=== PATIENT | female | born 1990 | race Caucasian/White ===

== ENCOUNTER → 2016-11-05 | Outpatient (CLI) | payer BC ==
[2016-11-05 18:05] LABS: HEMATOCRIT 40.2 % (37-47); MEAN CELL VOLUME 93.3 fL (80-100); MEAN CORPUSCULAR HEMOGLOBIN 31.8 pg (25-34); MEAN CORPUSCULAR HGB CONC 34.1 g/dl (32-36); MEAN PLATELET VOLUME 10.5 fL (7.4-10.4); PLATELET COUNT 244 K/uL (130-400); RED BLOOD COUNT 4.31 M/uL (4.2-5.4); WHITE BLOOD COUNT 6.66 K/uL (4.8-10.8)
== END | disposition home or self-care (01) ==
LOC: C.LAB 17:37
PROVIDERS: ATTEND Obstetrics & Gynecology
DX: R53.83 Other fatigue (principal); Z20.2 Contact with and (suspected) exposure to infections with a predominantly sexual mode of transmission; Z01.419 Encounter for gynecological examination (general) (routine) without abnormal findings

== ENCOUNTER → 2016-11-05 | Outpatient (CLI) | payer BC | END | disposition home or self-care (01) | LOC: C.PAPS 13:35 | PROVIDERS: ATTEND Obstetrics & Gynecology | DX: Z01.419 Encounter for gynecological examination (general) (routine) without abnormal findings (principal) ==

== ENCOUNTER → 2016-11-05 | Outpatient (CLI) | payer BC ==
[2016-11-10 03:39] LABS: CHLAMYDIA TRACH RNA*** NOT DETECTED (NOT DETECTED); GC (NEIS GONORRHOEAE)RNA** NOT DETECTED (NOT DETECTED); TRICHOMONAS VAGINALIS RNA** NOT DETECTED (NOT DETECTED)
== END | disposition home or self-care (01) ==
LOC: C.LABSPEC 14:21
PROVIDERS: ATTEND Obstetrics & Gynecology
DX: Z20.2 Contact with and (suspected) exposure to infections with a predominantly sexual mode of transmission (principal)

== ENCOUNTER → 2017-05-06 | Outpatient (CLI) | payer OTHER ==
[2017-05-06 12:45] LABS: CHOLESTEROL/HDL RATIO 2.9
== END | disposition home or self-care (01) ==
LOC: C.LABBFT 10:29
PROVIDERS: ATTEND Nurse Practitioner
DX: Z00.00 Encounter for general adult medical examination without abnormal findings (principal)

== ENCOUNTER 2017-10-18 18:33 | Emergency (ER) | payer OTHER ==
[~2017-10-18] VITALS: Ht 166.4 cm; Wt 78.0 kg
[2017-10-18 18:36] VITALS: Ht 166.4 cm; Wt 78.0 kg
--- NOTE | 2017-10-18 19:08 | DIAGNOSTIC IMAGING REPORT ---
R WRIST W/NAVICULAR MIN 3 VIEWS CLINICAL HISTORY: Right wrist pain status post trauma COMPARISON: None. DISCUSSION: There is a nondisplaced transverse fracture through the distal radial metaphysis. No ulnar fractures are visualized. There is no dislocation. There is no evidence for soft tissue swelling. IMPRESSION: Acute nondisplaced distal radial fracture Electronically signed by: Regino Dunn M.D. 10/18/2017 7:06 PM Dictated Date/Time: 10/18/2017 7:06 PM
[2017-10-18] MEDS ORDERED: IBUPROFEN 600 MG TAB PO STA (19:12)
--- NOTE | 2017-10-18 19:14 | EMERGENCY ROOM VISIT NOTE ---
History First contact with patient: 18:41 Chief Complaint: WRIST PAIN Stated Complaint: PAIN IN R WRIST History of Present Illness The patient is a 27 year old female who presents to the Emergency Room via private vehicle with complaints of "pain and right wrist". The patient states that she was snowboarding earlier today at [employer], when she fell and injured her right wrist. She rates the right wrist pain as a 6/10. She is right- handed. She denies any other injuries. She notes no numbness or tingling in the distal extremity. She had 1000 mg of ibuprofen around 2 PM. Review of Systems A complete 6-point Review of Systems was discussed with the patient, with pertinent positives and negatives listed in the History of Present Illness. All remaining Review of Systems questions can be considered negative unless otherwise specified. Past Medical/Surgical History Non contributory Family History Non contributory Social History Smoking Status: Current Every Day Smoker Pt. lives locally Current/Historical Medications Scheduled Doxycycline Monohydrate (Monodox), 100 MG PO BID Scheduled PRN Hydrocodone/Acetaminophen 5MG/325MG (Beaufort 5MG/325MG), 1-2 TABLET PO Q6 PRN for Pain Physical Exam Vital Signs Date Time Temp Pulse Resp B/P (MAP) Pulse Ox O2 Delivery O2 Flow Rate FiO2 10/18/17 19:47 84 18 119/77 100 Room Air 10/18/17 18:36 Room Air Physical Exam VITAL SIGNS - Vital signs and nursing notes were reviewed. Stable. GENERAL - 27-year-old female appearing her stated age who is in no acute distress. Communicates well with provider and answers questions appropriately. SKIN - Without rashes. Mild edema noted over the dorsal aspect of the right lateral wrist. EXTREMITIES - pinpoint tenderness overlying the right distal radial region. There is no distal or proximal tenderness. No deformity noted. No other hand or forearm tenderness noted. She is neurovascularly intact in this region. Medical Decision & Procedures ER Provider Diagnostic Interpretation: R WRIST W/NAVICULAR MIN 3 VIEWS CLINICAL HISTORY: Right wrist pain status post trauma COMPARISON: None. DISCUSSION: There is a nondisplaced transverse fracture through the distal radial metaphysis. No ulnar fractures are visualized. There is no dislocation. There is no evidence for soft tissue swelling. IMPRESSION: Acute nondisplaced distal radial fracture Electronically signed by: Regino Dunn M.D. 10/18/2017 7:06 PM Dictated Date/Time: 10/18/2017 7:06 PM Medications Administered Medications (Trade) Dose Ordered Sig/Bretnon Route Start Time Stop Time Status Last Admin Dose Admin Ibuprofen (Motrin Tab) 600 mg NOW STAT PO 10/18/17 19:12 10/18/17 19:14 DC 10/18/17 19:18 600 MG Acetaminophen/ Hydrocodone Bitart (Beaufort 5/325mg Home Pack) 1 [facility] UD STAT PO 10/18/17 19:27 10/18/17 19:28 DC 10/18/17 19:43 1 [facility] Medical Decision Patient was seen and evaluated as above. She presents to us today status post fall. She is nontoxic in appearance, well-appearing and is hemodynamically stable. X-ray reveals a nondisplaced right distal radial fracture. She appears stable for outpatient management. She was given 600 mg of ibuprofen here for pain per request. She declined narcotic pain medication while here. She was fitted with an Ortho-Glass volar splint with good fit. Neurovascularly intact post-splinting. She was also given an arm sling. She is to follow with orthopedics. She is to call them tomorrow. She'll be given a short prescription of Beaufort for her pain. She was educated upon management, educated upon worrisome symptoms which to return, had questions answered prior to discharge, and was discharged home in good condition. No red flags identified and the [place] drug monitoring system. In the evaluation and treatment of this patient, the following differential diagnoses were considered: Wrist Sprain, Wrist Fracture, Wrist Dislocation, Scapholunate Dissociation, Carpal Fracture, Metacarpal Fracture, Radial Styloid Process Fracture, Ulnar Styloid Process Fracture, or Carpal Tunnel Syndrome. Impression Primary Impression: Radius distal fracture Departure Information Dispostion Home / Self-Care Condition GOOD Prescriptions Hydrocodone/Acetaminophen 5MG/325MG (Beaufort 5MG/325MG) Tab 1-2 TABLET PO Q6 Y for Pain, #20 TAB For Initial Treatment Prov: Amarjit Barraza PA-C 10/18/17 Referrals No Doctor, Assigned (PCP) Gary Ortega D.O. Patient Instructions My [facility] Additional Instructions You have been treated in the Emergency Department for Wrist Pain. You have been prescribed NORCO to be used for pain control. This is a narcotic medication. You cannot drive or consume alcohol while on this medicine. This medicine should only be used for pain that cannot be controlled with over-the- counter pain medicines. Please do not take with other sources of Tylenol/ acetaminophen. For pain control, you can use the following [id number] medicines: - Regular strength (325mg/tab) Tylenol (acetaminophen) 2 tabs every 4-6 hours as needed. Do not exceed 12 tablets in a 24 hour period. Avoid taking more than 3 grams (3000 mg) of Tylenol per day. This includes any other sources of acetaminophen you may take on a regular basis. - Regular strength (200 mg/tab) Advil (ibuprofen) 1-2 tabs every 4-6 hours as needed. Do not exceed a dose of 3200 mg per day. Max 800mg every 8 hours OR 600mg every 6hours OR 400mg every 4 hours If this is a recent injury (<24 hrs), ice can be applied to the area of pain for the first 3 days to help decrease pain and inflammation. You have been provided the number for an Orthopaedic Surgeon. You should call this number as soon as possible to establish a follow-up visit from today's Emergency Department visit. Keep the brace/splint in place until evaluated by Orthopedics. Return to the Emergency Department if your current symptoms worsen despite treatment course outlined above, or if you develop any of the following symptoms : intractable pain despite aforementioned treatment course or new onset of numbness or tingling of the fingers.
[2017-10-18] MEDS ORDERED: NORCO 5/325MG HOME PACK PO STA (19:27)
[2017-10-18] MEDS ORDERED: DOXY100C76 PO (19:29)
[2017-10-18] MEDS ORDERED: HYDR-5688 PO (19:31)
[2017-10-18 19:47] VITALS: BP 119/77; PULSE 84; O2SAT 100
== END 2017-10-18 19:50 | disposition home or self-care (01) ==
LOC: C.EDB 18:35 → C.EDD 19:50
DX: S52.501A Unspecified fracture of the lower end of right radius, initial encounter for closed fracture (principal); V00.311A Fall from snowboard, initial encounter; Y93.23 Activity, snow (alpine) (downhill) skiing, snowboarding, sledding, tobogganing and snow tubing; Y92.838 Other recreation area as the place of occurrence of the external cause; F17.200 Nicotine dependence, unspecified, uncomplicated

== ENCOUNTER → 2018-05-29 | Outpatient (CLI) | payer OTHER ==
[~2018-05-29] MED LIST: DOXY100C76 PO
== END | disposition home or self-care (01) ==
LOC: C.LAB1850 14:50
PROVIDERS: ATTEND Obstetrics & Gynecology
DX: Z34.02 Encounter for supervision of normal first pregnancy, second trimester (principal)

== ENCOUNTER 2021-01-27 22:50 | Inpatient (IN) ==
[2021-01-27] MEDS ORDERED: LACTATED RINGER'S 1,000 ML IV PRN (23:16)
[2021-01-27] MEDS ORDERED: ceFAZolin 1000MG 1,000 MG/7.5 ML SYR IV PRN (23:16)
[2021-01-27] MEDS ORDERED: OXYTOCIN 30 UNITS/500 ML BAG IV PRN (23:16)
[2021-01-27] MEDS ORDERED: fentaNYL citrate 100 MCG/2 ML VIAL ONE (23:26)
[2021-01-27] MEDS ORDERED: SODIUM CHLORIDE 0.9% INJ 10 ML VIAL ONE (23:26)
[2021-01-27] MEDS ORDERED: ePHEDrine sulfate 50 MG/ML AMP ONE (23:26)
[2021-01-27] MEDS ORDERED: BUPIVACAINE 0.25% 30 ML VIAL ONE (23:26)
[2021-01-27] MEDS ORDERED: fentaNYL 2MCG/ML ROPIVACAINE 1.25MG/ML 100 ML BAG EPI ONE (23:27)
[2021-01-27 23:40] LABS: Hematocrit (blood only) 35.4 % (37-47); Hemoglobin 11.8 g/dL (12.0-16.0); Mean Corpuscular Hemoglobin 29.3 pg (25-34); Mean Corpuscular Hgb Conc 33.3 g/dL (32-36); Mean Corpuscular Volume 87.8 fL (80-100); Mean Platelet Volume 10.7 fL (7.4-10.4); Platelet Count 208 K/uL (130-400); RDW Standard Deviation 45.3 fL (36.4-46.3); Red Blood Count 4.03 M/uL (4.2-5.4); White Blood Count 15.81 K/uL (4.8-10.8)
--- NOTE | 2021-01-28 00:15 | History & Physical Report ---
Date of Service January 28, 2021 Assessment & Plan (1) Encounter for supervision of normal in multigravida, antepartum: Admit to L&D. EFM/toco. Labs. IV. Ancef for GBS prophylaxis due to penicillin allergy (hives). Anticipate . Admission and Anticipated Discharge Date Admission Date: January 27, 2021 History of Present Illness Chief Complaint: labor Primary Care Provider: VINAYAK Moon 30yo @ 40 0/7, presents with regular contractions. + movement, no vaginal bleeding, no leaking fluid. GBS+ Allergies Allergy/AdvReac Type Severity Reaction Status Date / Time Penicillins Allergy Unknown Hives Verified 01/22/21 15:32 AMOXICILLIN Allergy Unknown Hives Uncoded 01/08/21 15:43 Home Medications Medication Instructions Recorded Confirmed Type prenat.vits,sakshi,bze-nvup-sphva 1 tab PO DAILY 06/13/20 01/22/21 History promethazine 12.5 mg tablet 12.5 mg PO Q6H PRN #30 tab 07/14/20 01/22/21 Rx Patient History Medical History (Updated 01/05/21 @ 07:22 by Tika Cheatham MD) Encounter for anatomic survey H/O esophageal reflux History of fracture of nasal bone closed treatment of nasal bone fracture History of PCOS Migraine headache Rib pain on left side Surgical History (Updated 05/04/19 @ 13:11 by Kev Isaacs) History of colposcopy with loop electrode excision of the cervix History of oral surgery tooth extraction Family History (Updated 06/24/20 @ 14:22 by Romy Cho MD) Grandmother Hypertension Myocardial infarction Father Pure hypercholesterolemia Kidney stones Mother Myocardial infarction Hypercholesteremia Heart defect Social History (Updated 06/13/20 @ 14:35 by Sushila Hart) Smoking Status: Former smoker Second Hand Exposure: No; Do You Dip or Chew Tobacco: No; Tobacco Cessation Education Requested by Patient: No Hx Alcohol Use: No Hx Substance Use: No Preferred Language: Nigerian Communication Ability: Effective Lab Manager Required: No Beliefs That Will Affect Care: None marital status: marital status details: Ed ([phone] Current Living Situation: Spouse and Family Current Living Situation Comment: and daughter current occupational status: employed 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 Other Information That Helps Us Care for You: No Feels Safe at Home: Yes Safety Concerns: Feels Safe At This Time Assistive Devices: None Review of Systems All systems reviewed & are unremarkable except as noted in HPI & below Physical Exam Physical Exam: Cervix 6/100/-1 bulging membranes per RN Constitutional: WD/WN, vitals as above Respiratory: normal respiratory effort, lungs clear to auscultation no respiratory distress Cardiovascular: Rate/Rhythm: regular rate and regular rhythm Gastrointestinal (Abdomen): Inspection/Auscultation: abdomen normal to inspection Percussion/Palpation: abdomen soft; abdomen nontender Gravid. No s/s chorio or abruption. Skin: no rashes, warm and dry Psychiatric: A+Ox3, euthymic affect Results & Data ([facility]) Vital Signs (Past 12 Hours) Vital Signs Temp Pulse Resp BP Pulse Ox 01/28/21 00:10 86 100 01/28/21 00:05 77 100 01/27/21 23:26 36.7 C 18 01/27/21 23:04 87 143/68 H Monitoring External Monitor Cat 1 Tocodynamometer Q 2-3 Coding Level of Care Code None Diagnoses Encounter for supervision of normal in multigravida, antepartum Z34.80
[2021-01-28] MEDS ORDERED: NALOXONE HCL 0.4 MG/1 ML VIAL/CARP IV PRN (00:32)
[2021-01-28] MEDS ORDERED: ONDANSETRON INJ 2 MG/ML 2 ML VIAL IV PRN (00:32)
[2021-01-28] MEDS ORDERED: ePHEDrine sulfate 50 MG/ML AMP IV PRN (00:32)
[2021-01-28] MEDS ORDERED: NALOXONE HCL 1 MG in SODIUM CHLORIDE 0.9% 1000ML 1,000 ML IV PRN (00:32)
[2021-01-28] MEDS ORDERED: PROMETHAZINE HCL 6.25 MG in SODIUM CHLORIDE 0.9% 50 ML IV PRN (00:32)
[2021-01-28] MEDS ORDERED: diphenhydrAMINE 50 MG/ML VIAL IV PRN (00:32)
[2021-01-28] MEDS ORDERED: fentaNYL 2MCG/ML ROPIVACAINE 1.25MG/ML 100 ML BAG EPI PRN (00:32)
--- NOTE | 2021-01-28 00:35 | Anesthesiology Consultation ---
Date of Service January 28, 2021 Assessment & Plan (1) Encounter for pre-operative examination: Chart Review Chart Review: Acceptable Risk for Surgery and Patient NOT seen in Pre Admission Testing Consults Requested none ASA ASA2 Proposed Anesthesia Anesthesia Type: Labor Epidural Risk / Benefits Reviewed With: PT / POA / Parent / Guardian, Accepts Plan and Informed Consent Obtained History Height/Weight Height: 5 ft 5 in Weight: 92.533 kg Allergies Allergy/AdvReac Type Severity Reaction Status Date / Time Penicillins Allergy Unknown Hives Verified 01/22/21 15:32 AMOXICILLIN Allergy Unknown Hives Uncoded 01/08/21 15:43 Medications Home Medications Medication Instructions Recorded Confirmed Last Taken prenat.vits,sakshi,gwp-ohug-wawvr 1 tab PO DAILY 06/13/20 01/22/21 Unknown promethazine 12.5 mg tablet 12.5 mg PO Q6H PRN #30 tab 07/14/20 01/22/21 Unknown Active Medications Generic Name Dose Route Start Last Admin Trade Name Freq PRN Reason Stop Dose Admin Cefazolin Sodium 1,000 mg in 7.5 mls @ 2.5 mls/min 01/27/21 23:16 01/27/21 23:30 Ancef 1000mg IV 02/10/21 23:15 2.5 mls/min Q8H PRN Administration Until Delivery Lactated Ringer's 1,000 mls @ 125 mls/hr 01/27/21 23:16 01/28/21 00:00 Lr IV 01/29/21 23:15 125 mls/hr .Q8H PRN Infusion L&D Protocol Protocol NPO Date Last Intake of Fluids: 01/27/21 Time Last Intake of Fluids: 22:00 Date Last Intake of Solids: 01/27/21 Time Last Intake of Solids: 19:00 Past Medical History Medical History Encounter for anatomic survey H/O esophageal reflux History of fracture of nasal bone closed treatment of nasal bone fracture History of PCOS Migraine headache Rib pain on left side Exercise / Class Metabolic Activity II 4-5 Yardwork/Stairs/Walk up hill Past Family History Family History Grandmother Hypertension Myocardial infarction Father Pure hypercholesterolemia Kidney stones Mother Myocardial infarction Hypercholesteremia Heart defect Past Surgical History Surgical History History of colposcopy with loop electrode excision of the cervix History of oral surgery tooth extraction Past Anesthesia History No Hx of Anesthesia Complications and No Family Hx of Anesthesia Complications History of PONV No Hx of PONV and No Hx of Motion Sickness Social History Smoking Status: Former smoker tobacco type: cigarettes Do You Dip or Chew Tobacco: No Hx Alcohol Use: No Hx Substance Use: No substance use type: does not use Physical Exam Vital Signs Last Vital Signs Temp 36.7 C 01/27/21 23:26 Pulse 97 H 01/28/21 00:32 Resp 18 01/27/21 23:26 BP 112/58 L 01/28/21 00:32 Pulse Ox 98 01/28/21 00:30 ENMT Mouth: no dentition abnormality Thyromental Distance: > or= 3.5 Finger Breadths Mallampati Class: II Neck normal visual inspection Respiratory normal respiratory effort Auscultation: lungs clear to auscultation bilaterally Cardiovascular Rate/Rhythm: regular rate and regular rhythm Psychiatric Orientation: alert Testing Laboratory Results 01/27/21 23:30
[2021-01-28] MEDS ORDERED: ERYTHROMYCIN OP OINT 1 GM PKT ONE (04:08)
--- NOTE | 2021-01-28 04:28 | Delivery Summary ---
Vaginal Delivery Summary Date of Service January 28, 2021 Vaginal Delivery Summary Vaginal Delivery Summary: Pre-delivery diagnoses: 30yo @ 40 0/7, spontaneous labor, GBS+ Post-delivery diagnoses: same, periclitoral laceration Procedure: spontaneous vaginal delivery, repair of periclitoral laceration Surgeon: Danuta Dunham DO Complications: none Findings: Viable male . Apgars: 8/9 . Weight pending, please see nursery records Estimated blood loss: 300ml Description of delivery: The patient progressed to complete with epidural anesthesia. She then began to push. She spontaneously vaginally delivered a viable from the cephalic presentation. The head delivered in ROP position. Nuchal cord was very tight, unable to reduce, patient began to spontaneously push at the same time as attempt at reduction of nuchal, this caused cord to stretch and avulse. The anterior and posterior shoulders were delivered quickly, followed by the body. The baby's side of the cord was instantly grasped and clamped with a plastic cord clamp. The baby was placed on mother's abdomen and a spontaneous cry was heard. The placenta was delivered spontaneously intact with a 3-vessel cord. The uterus and vagina were swept of clots and debris. IV pitocin was given. The uterus became firm. The cervix, vagina, and perineum were inspected and a small periclitoral laceration was noted, repaired with 3-0 vicryl in a running locked stitch. Excellent hemostasis was observed. The mother and baby are recovering in stable and good condition in the room. Sponge, needle and instrument counts were correct x 2. Danuta Dunham DO [facility] Vaginal Delivery Charge Vaginal Delivery Codes: 39805 global code for the antepartum, delivery, and post- Delivery Type Details: [facility]
[2021-01-28] MEDS ORDERED: ACETAMINOPHEN 325 MG TAB PO PRN (04:36)
[2021-01-28] MEDS ORDERED: HYDROCORTISONE ACETATE 25 MG SUPP PR PRN (04:36)
[2021-01-28] MEDS ORDERED: oxyCODONE/ACETAMINOPHEN 5mg/325mg TAB PO PRN (04:36)
[2021-01-28] MEDS ORDERED: bisacodyL 10 MG SUPP PR PRN (04:36)
[2021-01-28] MEDS ORDERED: DIPHTHERIA/TETANUS/PERTUSSIS 0.5 ML SYR/VIAL IM ONE (04:36)
[2021-01-28] MEDS ORDERED: BENZOCAINE 20% AER SPR 82.5 GM CAN EXT PRN (04:36)
[2021-01-28] MEDS ORDERED: OXYTOCIN 30 UNITS/500 ML BAG IV PRN (04:36)
[2021-01-28] MEDS ORDERED: SUPERCREAM 0.870% 15 GM JAR EXT PRN (04:36)
--- NOTE | 2021-01-28 07:51 | Anesthesia Procedure Note ---
Date of Service January 28, 2021 Anesthesia Post Epidural Note Vital Signs Vital Signs: Temp Pulse Resp BP Pulse Ox 37.0 C 78 18 114/56 L 99 01/28/21 04:45 01/28/21 06:26 01/28/21 05:45 01/28/21 06:26 01/28/21 04:05 Pain Intensity Bilateral Episiotomy/Laceration: Pain Intensity: 1 Notes Mental Status: alert / awake / arousable Nausea / Vomiting: adequately controlled Pain: adequately controlled Airway Patency, RR, SpO2: stable & adequate BP & HR: stable & adequate Hydration State: stable & adequate Neuraxial Anesthesia: was administered and sensory block is resolving Anesthetic Complications: no major complications apparent Epidural: Removed without complications and With tip intact
[2021-01-28] MEDS ORDERED: PRENATAL VITAMIN 1 TAB PO SCH (08:00)
[2021-01-28] MEDS: IBUPROFEN 600 MG TAB PO PRN (11:15)
[2021-01-28] MEDS: DOCUSATE SODIUM 100 MG CAP PO SCH (20:19)
[2021-01-29] MEDS: IBUPROFEN 600 MG TAB PO PRN (04:48)
[2021-01-29 06:35] LABS: Hematocrit (blood only) 32.1 % (37-47); Hemoglobin 10.5 g/dL (12.0-16.0)
--- NOTE | 2021-01-29 06:56 | Obstetrical Progress Note ---
Date of Service <Rabia Knott DO - Last Filed: 01/29/21 07:27> January 29, 2021 Assessment & Plan <Rabia Knott DO - Last Filed: 01/29/21 07:27> (1) state: PPD #1 - PNL: Rh pos, RI, GBS positive, COVID neg - Feels well today. Eating well, voiding well, ambulating well. - Pain well controlled with ibuprofen 600mg Q4H PRN - Routine care -- OOB, ambulation, diet progression as tolerated - After discharge will have 6 week follow-up with Dr. Dunham. - Patient requesting discharge home today. Subjective <Rabia Knott DO - Last Filed: 01/29/21 07:27> Brianna Amezcua is a 30 y/o female who is PPD #1 following spontaneous vaginal delivery at 40 weeks. She reports feeling well overall this morning. Minimal abdominal cramping and 0/10 pain well managed on analgesics. Voiding without dysuria. Tolerating meals overnight without difficulty. Patient has been able to ambulate some. She is passing gas and feels the urge to have a bowel movement. Has persistent lochia with some improvement this morning. Currently . Review of Systems Denies fever or chills. Denies shortness of breath or cough. Denies chest pain. Denies breast pain. Denies dysuria. Denies leg pain or leg swelling. Denies headache or changes in vision. Physical Exam <Rabia Knott DO - Last Filed: 01/29/21 07:27> General: Alert, oriented. No acute distress. Cardiac: Regular rate and rhythm. No murmurs. Respiratory: Clear to auscultation bilaterally a/p, no wheezes/rales/rhonchi. No increased work of breathing. Symmetrical chest rise. No respiratory distress. Abdomen: Soft, nontender, nondistended. Bowel sounds present. Uterus: Uterine fundus firm, palpable 2 cm below umbilicus. Lower Extremities: No lower extremity edema or swelling. No deep calf pain. Natasha's negative bilaterally. Results & Data ([facility]) <Rabia Knott DO - Last Filed: 01/29/21 07:27> Vital Signs (Past 12 Hours) Vital Signs Temp Pulse Resp BP Pulse Ox 01/29/21 04:50 36.3 C L 67 17 117/79 97 01/28/21 23:50 36.6 C 58 L 16 128/87 100 01/28/21 19:45 36.7 C 86 16 134/86 Laboratory Results 01/29/21 Range/Units 05:56 Hgb 10.5 L (12.0-16.0) g/dL Hct 32.1 L (37-47) % <Sobia Jean MD, FACOG - Last Filed: 01/29/21 09:41> Co-Signing Physician Notes Resident Physician Supervision Note: I interviewed and examined the patient. Discussed with Dr. Knott and agree with findings and plan as documented in the note. Any exceptions or clarifications are listed here: [None] Documented By: Sobia Jean MD, FACOG Resident Activity Tracking <Rabia Knott DO - Last Filed: 01/29/21 07:27> Resident Involvement: Resident Care Provided Care Provided: OB Delivery
[2021-01-29] MEDS: DOCUSATE SODIUM 100 MG CAP PO SCH (08:30)
[2021-01-29] MEDS ORDERED: bisacodyL 5 MG TABEC PO SCH (20:00)
== END 2021-01-29 11:35 | disposition home or self-care (01) | DRG 807 ==
LOC: OPB 22:50 → 4S1 22:50 → 4S2 01-28 06:45 → 4N 01-28 11:00